=== PATIENT | female | born 1955 | race African-American/Black ===

== ENCOUNTER 2019-05-27 13:46 | Inpatient (IN) | payer OTHER ==
[~2019-05-27] VITALS: Ht 154.9 cm; Wt 74.8 kg
[~2019-05-27 13:46] MED LIST: AMIT25TA9 PO; BUPR300T52 PO; IMIP25TA6 PO; METOPROLOL TARTRATE PO; OMEP20CA5 PO; RISP1 PO; ZOLP5TAB2 PO
[2019-05-27] MEDS ORDERED: METHYLPREDNISOLONE SOD SUCC 125 MG/2 ML VIAL IV STA (15:05)
[2019-05-27] MEDS ORDERED: IPRATROPIUM BROMIDE (0.02%) 0.5MG/2.5ML NEB HHN STA (15:05)
[2019-05-27] MEDS ORDERED: ALBUTEROL (0.083%) 2.5MG/3ML NEB HHN STA (15:05)
[2019-05-27] MEDS ORDERED: FUROSEMIDE 20MG/2ML VIAL IVP ONE (15:15)
[2019-05-27] MEDS ORDERED: MAGNESIUM 2 G PREMIX 50 ML IV ONE (15:15)
[2019-05-27 15:18] LABS: BASOPHILS % 0.6 % (0.0-2.0); EOSINOPHILS % 0.4 % (0.0-5.0); HEMATOCRIT. 43.7 % (36.0-48.0); HEMOGLOBIN. 13.9 g/dL (12.0-16.0); LYMPHOCYTES % 11.8 % (20.0-50.0); MEAN CORPUSCULAR HEMOGLOBIN 29.7 pg (28.0-32.0); MEAN CORPUSCULAR VOLUME 93.4 fL (81.0-99.0); MONOCYTES % 10.1 % (2.0-8.0); NEUTROPHILS % 77.1 % (40.0-76.0); PLATELET 162 x1000/uL (130-400); RED BLOOD CELL COUNT 4.68 mill/uL (4.2-5.4); RED CELL DISTRIBUTION WIDTH 14.4 % (11.6-14.6)
[2019-05-27 15:20] LABS: CHLORIDE 108 mEq/L (98-107)
[2019-05-27 22:30] VITALS: BP 182/88
[2019-05-27] MEDS ORDERED: METO25TA6 PO (23:32)
[2019-05-27] MEDS ORDERED: UMEC62.5 IH (23:32)
[2019-05-27] MEDS ORDERED: ALBU05 NEB (23:32)
[2019-05-27] MEDS ORDERED: HYDR-3641 MT (23:32)
[2019-05-27] MEDS ORDERED: LOSA100T32 PO (23:32)
[2019-05-27] MEDS ORDERED: ZOLP10TA6 MT (23:32)
[2019-05-27] MEDS ORDERED: HYDR-4135 MT (23:32)
[2019-05-27] MEDS ORDERED: MONT10TA24 MT (23:32)
[2019-05-27] MEDS ORDERED: OMEP40CA34 MT (23:32)
[2019-05-28] VITALS: BP 122/71
[2019-05-28 00:33] VITALS: BP 182/88
[2019-05-28] MEDS ORDERED: LACTULOSE 20G/30ML UDC PO PRN (02:15)
[2019-05-28] MEDS ORDERED: CLONIDINE 0.1MG TABLET PO PRN (02:15)
[2019-05-28 04:00] VITALS: BP 152/80
[2019-05-28] MEDS ORDERED: METHYLPREDNISOLONE SOD SUCC 40 MG/ML VIAL IV SCH (06:00)
[2019-05-28] MEDS: IPRATROPIUM/ALBUTEROL 0.5-3(2.5)MG/3ML NEB HHN SCH ×5 (08:29→23:48)
[2019-05-28] MEDS: AMLODIPINE 5MG TABLET PO SCH ×2 (08:35→20:34)
[2019-05-28] MEDS: GUAIFENESIN 600MG ER TABLET PO SCH ×2 (08:37→20:34)
[2019-05-28 08:40] VITALS: BP 162/103
[2019-05-28] MEDS: FUROSEMIDE 40MG/4ML VIAL IVP SCH (08:48)
[2019-05-28] MEDS ORDERED: GUAIFENESIN-DM 200MG-20MG/10ML UDC PO PRN (11:15)
[2019-05-28] MEDS ORDERED: SORBITOL 70% SOLN 30ML PO NR (11:15)
[2019-05-28] MEDS ORDERED: ASPIRIN 81MG EC TABLET PO NR (11:45)
[2019-05-28] MEDS ORDERED: POTASSIUM CHLORIDE 20MEQ TABLET SR PO NR (11:45)
[2019-05-28 12:00] VITALS: BP 151/101
[2019-05-28] MEDS: METHYLPREDNISOLONE SOD SUCC 125 MG/2 ML VIAL IV SCH ×2 (12:00→20:34)
[2019-05-28] MEDS: LOSARTAN POTASSIUM 100 MG TABLET PO SCH (12:00)
[2019-05-28] MEDS: DOCUSATE SODIUM 250MG CAPSULE PO SCH (12:00)
[2019-05-28] MEDS: BUDESONIDE 0.5MG/2ML NEB HHN SCH ×2 (12:34→23:48)
[2019-05-28 12:56] LABS: CHLORIDE 101 mEq/L (98-107)
[2019-05-28 12:59] LABS: BASOPHILS % 0.2 % (0.0-2.0); HEMATOCRIT. 44.4 % (36.0-48.0); HEMOGLOBIN. 14.6 g/dL (12.0-16.0); LYMPHOCYTES % 9.3 % (20.0-50.0); MEAN CORPUSCULAR HEMOGLOBIN 30.1 pg (28.0-32.0); MEAN CORPUSCULAR VOLUME 91.5 fL (81.0-99.0); MEAN PLATELET VOLUME 10.2 fl (7.4-10.4); MONOCYTES % 6.9 % (2.0-8.0); NEUTROPHILS % 83.6 % (40.0-76.0); PLATELET 211 x1000/uL (130-400); RED BLOOD CELL COUNT 4.85 mill/uL (4.2-5.4); RED CELL DISTRIBUTION WIDTH 14.2 % (11.6-14.6)
[2019-05-28 20:00] VITALS: BP 128/83
[2019-05-29] VITALS: BP 152/78
[2019-05-29 04:00] VITALS: BP 155/81
[2019-05-29] MEDS: IPRATROPIUM/ALBUTEROL 0.5-3(2.5)MG/3ML NEB HHN SCH ×5 (04:11→20:49)
[2019-05-29] MEDS: METHYLPREDNISOLONE SOD SUCC 125 MG/2 ML VIAL IV SCH ×3 (06:07→20:42)
[2019-05-29] MEDS: BUDESONIDE 0.5MG/2ML NEB HHN SCH ×2 (07:44→20:49)
[2019-05-29 08:00] VITALS: BP 131/82
[2019-05-29] MEDS: FUROSEMIDE 40MG/4ML VIAL IVP SCH (08:22)
[2019-05-29] MEDS: GUAIFENESIN 600MG ER TABLET PO SCH ×2 (08:23→20:42)
[2019-05-29] MEDS: DOCUSATE SODIUM 250MG CAPSULE PO SCH (08:23)
[2019-05-29] MEDS: AMLODIPINE 5MG TABLET PO SCH (08:23)
[2019-05-29] MEDS: ASPIRIN 81MG EC TABLET PO SCH (08:23)
[2019-05-29] MEDS: LOSARTAN POTASSIUM 100 MG TABLET PO SCH (08:23)
[2019-05-29] MEDS ORDERED: POTASSIUM CHLORIDE 20MEQ TABLET SR PO SCH (09:00)
[2019-05-29 12:00] VITALS: BP 126/81
[2019-05-29] MEDS: MORPHINE SULFATE 2 MG/ML CPJ (NOT FOR IM USE) IV PRN ×2 (12:00→20:42)
[2019-05-29] MEDS: DILTIAZEM HCL 60MG TABLET PO SCH ×2 (16:02→20:42)
[2019-05-29 17:27] VITALS: BP 156/96
[2019-05-29 20:00] VITALS: BP 152/80
[2019-05-30] VITALS: BP 135/82
[2019-05-30] MEDS: ZOLPIDEM TARTRATE 5MG TABLET PO PRN (00:18)
[2019-05-30] MEDS: IPRATROPIUM/ALBUTEROL 0.5-3(2.5)MG/3ML NEB HHN SCH ×6 (01:28→20:19)
[2019-05-30 04:00] VITALS: BP 152/76
[2019-05-30] MEDS: METHYLPREDNISOLONE SOD SUCC 125 MG/2 ML VIAL IV SCH ×3 (06:18→20:33)
[2019-05-30] MEDS: DILTIAZEM HCL 60MG TABLET PO SCH ×3 (06:18→20:33)
[2019-05-30 06:19] LABS: HEMATOCRIT. 43.8 % (36.0-48.0); HEMOGLOBIN. 14.3 g/dL (12.0-16.0); MEAN CORPUSCULAR HEMOGLOBIN 29.7 pg (28.0-32.0); MEAN CORPUSCULAR VOLUME 90.9 fL (81.0-99.0); MEAN PLATELET VOLUME 9.8 fl (7.4-10.4); PLATELET 227 x1000/uL (130-400); RED BLOOD CELL COUNT 4.81 mill/uL (4.2-5.4)
[2019-05-30 06:47] LABS: CHLORIDE 96 mEq/L (98-107)
[2019-05-30] MEDS: BUDESONIDE 0.5MG/2ML NEB HHN SCH ×2 (07:35→20:19)
[2019-05-30 08:00] VITALS: BP 148/85
[2019-05-30] MEDS: DOCUSATE SODIUM 250MG CAPSULE PO SCH (08:55)
[2019-05-30] MEDS: FUROSEMIDE 40MG/4ML VIAL IVP SCH (08:55)
[2019-05-30] MEDS: GUAIFENESIN 600MG ER TABLET PO SCH ×2 (08:55→20:33)
[2019-05-30] MEDS: ASPIRIN 81MG EC TABLET PO SCH (08:55)
[2019-05-30] MEDS: POTASSIUM CHLORIDE 20MEQ TABLET SR PO SCH ×2 (08:56→17:14)
[2019-05-30] MEDS: MORPHINE SULFATE 2 MG/ML CPJ (NOT FOR IM USE) IV PRN ×2 (08:57→18:41)
[2019-05-30] MEDS: LOSARTAN POTASSIUM 100 MG TABLET PO SCH (09:01)
[2019-05-30 12:00] VITALS: BP 150/77
[2019-05-30 12:26] LABS: PLATELET ESTIMATE NORMAL
[2019-05-30 16:00] VITALS: BP 145/82
[2019-05-30 20:00] VITALS: BP 143/79
[2019-05-31] VITALS: BP 136/75
[2019-05-31] MEDS: ZOLPIDEM TARTRATE 5MG TABLET PO PRN (00:39)
[2019-05-31] MEDS: IPRATROPIUM/ALBUTEROL 0.5-3(2.5)MG/3ML NEB HHN SCH ×5 (01:10→15:45)
[2019-05-31 04:00] VITALS: BP 141/75
[2019-05-31] MEDS: METHYLPREDNISOLONE SOD SUCC 125 MG/2 ML VIAL IV SCH ×2 (06:24→15:05)
[2019-05-31] MEDS: DILTIAZEM HCL 60MG TABLET PO SCH ×2 (06:24→15:05)
[2019-05-31] MEDS: FUROSEMIDE 40MG/4ML VIAL IVP SCH (09:21)
[2019-05-31] MEDS: LOSARTAN POTASSIUM 100 MG TABLET PO SCH (09:21)
[2019-05-31] MEDS: DOCUSATE SODIUM 250MG CAPSULE PO SCH (09:21)
[2019-05-31] MEDS: GUAIFENESIN 600MG ER TABLET PO SCH (09:21)
[2019-05-31] MEDS: ASPIRIN 81MG EC TABLET PO SCH (09:21)
[2019-05-31] MEDS: POTASSIUM CHLORIDE 20MEQ TABLET SR PO SCH (09:21)
[2019-05-31 12:00] VITALS: BP 128/69
[2019-05-31] MEDS: MORPHINE SULFATE 2 MG/ML CPJ (NOT FOR IM USE) IV PRN (15:14)
[2019-05-31 15:22] LABS: HEMATOCRIT. 47.5 % (36.0-48.0); HEMOGLOBIN. 15.6 g/dL (12.0-16.0); MEAN CORPUSCULAR HEMOGLOBIN 29.7 pg (28.0-32.0); MEAN CORPUSCULAR VOLUME 90.6 fL (81.0-99.0); MEAN PLATELET VOLUME 9.3 fl (7.4-10.4); PLATELET 270 x1000/uL (130-400); RED BLOOD CELL COUNT 5.25 mill/uL (4.2-5.4); RED CELL DISTRIBUTION WIDTH 13.9 % (11.6-14.6)
[2019-05-31 15:29] LABS: CHLORIDE 92 mEq/L (98-107)
[2019-05-31 15:42] VITALS: BP 147/81
[2019-05-31 21:28] LABS: PLATELET ESTIMATE NORMAL
== END 2019-05-31 17:25 | disposition home or self-care (01) | DRG 190 ==
LOC: ER 13:46 → 8WST 16:17 → EDBEDREQ 16:23 → ENRESERV 21:15
PROVIDERS: ADMIT Internal Medicine Nephrology; ATTEND Internal Medicine Nephrology
DX: J44.1 Chronic obstructive pulmonary disease with (acute) exacerbation (principal); I50.41 Acute combined systolic (congestive) and diastolic (congestive) heart failure; I47.1 Supraventricular tachycardia; I11.0 Hypertensive heart disease with heart failure; D63.8 Anemia in other chronic diseases classified elsewhere; E78.00 Pure hypercholesterolemia, unspecified; E78.5 Hyperlipidemia, unspecified; E87.6 Hypokalemia; E87.8 Other disorders of electrolyte and fluid balance, not elsewhere classified; F17.210 Nicotine dependence, cigarettes, uncomplicated; K59.00 Constipation, unspecified; F51.04 Psychophysiologic insomnia; Z82.49 Family history of ischemic heart disease and other diseases of the circulatory system; Z79.899 Other long term (current) drug therapy
CPT/HCPCS: 36415; 71045; 80048; 83735; 83880; 84484; 87070; 93005; 93306; 93970; 94640; 97162; 99291; C1893; J1940; J2270; J2920; J2930; J3475; J7620; J7626